=== PATIENT | female | born 1995 | race Caucasian/White ===

== ENCOUNTER 2018-09-30 19:51 | Emergency (ER) | payer OTHER ==
[~2018-09-30] VITALS: Ht 157.5 cm; Wt 59.0 kg
== END 2018-09-30 22:13 | disposition home or self-care (01) ==
LOC: ER 19:51
DX: S02.2XXA Fracture of nasal bones, initial encounter for closed fracture (principal); W18.09XA Striking against other object with subsequent fall, initial encounter; Y93.89 Activity, other specified; Y92.488 Other paved roadways as the place of occurrence of the external cause; Y99.8 Other external cause status

== ENCOUNTER → 2018-10-04 | Outpatient (CLI) | payer OTHER | END | disposition home or self-care (01) | LOC: TOM 15:21 | DX: S02.2XXA Fracture of nasal bones, initial encounter for closed fracture (principal) ==

== ENCOUNTER 2018-10-11 06:04 | Day surgery (SDC) | payer OTHER | END 2018-10-11 10:40 | disposition home or self-care (01) | LOC: CIR.AMB 06:04 | DX: S02.2XXA Fracture of nasal bones, initial encounter for closed fracture (principal) ==